=== PATIENT | female | born 1965 | race Caucasian/White ===

== ENCOUNTER 2017-09-29 08:19 | Day surgery (SDC) | payer BC ==
[~2017-09-29 08:19] MED LIST: LIDOCAINE HCL 1% MPF SOL ONE; PROPOFOL 500 MG/50 ML EMU IV ONE
[2017-09-29 10:13] VITALS: BP 117/58; PULSE 64; RESP 18; TEMP 97.6; O2SAT 99
== END 2017-09-29 10:35 | disposition home or self-care (01) ==
LOC: SURG 08:19
PROVIDERS: ATTEND Surgery
DX: R93.3 Abnormal findings on diagnostic imaging of other parts of digestive tract (principal); R19.7 Diarrhea, unspecified; K52.832 Lymphocytic colitis; K63.5 Polyp of colon; K62.1 Rectal polyp
CPT/HCPCS: 99001; J2001; J2704